=== PATIENT | female | born 1965 | race Asian ===

== ENCOUNTER 2018-12-06 13:05 | Emergency (ER) | payer OTHER ==
[~2018-12-06] VITALS: Ht 157.5 cm; Wt 49.9 kg
--- NOTE | 2018-12-06 13:10 | NUR ---
PATIENT CAME IN BY BLS. PATIENT ALTERED AND NOT ABLE TO COMMUNICATE. EMT'S NEVER GAVE REPORT ON PATIENT.
--- NOTE | 2018-12-06 13:10 | NUR ---
PT BROUGHT IN BY BLS TRANSPORT AND PLACED IN BED #5, TRIAGED. REPORT GIVEN TO DALE
--- NOTE | 2018-12-06 13:44 | NUR ---
ER Dr. JACKSON at bedside examining patient.
[2018-12-06] MEDS ORDERED: NACL 0.9% 1,000 ML IV ONE (13:45)
--- NOTE | 2018-12-06 13:50 | NUR ---
PATIENT CAME IN FOR ALTERED MENTAL STATUS. 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 PATIENT IS ALERT TO NAME AND . PATIENT AWAKE AND ABLE TO COMUNICATE BUT HARD TO UNDERSTAND. PATIENT COMPLAINING OF PAIN IN ABD 3/10 NON RADITATING.
[2018-12-06 14:12] LABS: BASOPHILS % (AUTO) 0.5 % (0.0-2.0); EOSINOPHILS # (AUTO) 0.3 K/uL (0.0-0.4); EOSINOPHILS % (AUTO) 4.1 % (0.0-4.0); HEMOGLOBIN 13.8 g/dL (12.0-16.0); LYMPHOCYTES # (AUTO) 2.5 K/uL (1.0-5.5); LYMPHOCYTES % (AUTO) 31.6 % (20.5-51.5); MEAN CORPUSCULAR HEMOGLOBIN 31 pg (27-31); MEAN CORPUSCULAR HGB CONC 33 % (32-36); MEAN CORPUSCULAR VOLUME 94 fL (79.0-98.0); MONOCYTES # (AUTO) 0.8 K/uL (0.0-1.0); MONOCYTES % (AUTO) 10.3 % (1.7-9.3); NEUTROPHILS # (AUTO) 4.2 K/uL (1.8-7.7); NEUTROPHILS % (AUTO) 53.5 % (40.0-70.0); PLATELET COUNT (AUTO) 318 K/uL (130-430); RED BLOOD CELL COUNT(AUTO) 4.46 MIL/uL (4.2-6.2); RED CELL DISTRIBUTION WIDTH 12.9 % (9.0-15.0); WHITE BLOOD COUNT (AUTO) 7.9 K/uL (4.8-10.8)
[2018-12-06 14:21] LABS: ANION GAP 7 (5-15); CALCIUM 9.5 mg/dL (8.4-11.0); CHLORIDE 104 mmol/L (98-107); CREATININE 0.57 mg/dL (0.55-1.30); GLUCOSE 92 mg/dL (70-99); SODIUM SERUM 138 mmol/L (136-145); UREA NITROGEN, BLOOD 14 mg/dL (8-21)
--- NOTE | 2018-12-06 14:21 | NUR ---
PATIENT LEFT TO CT VIA GURNEY IN STABLE CONDITION.
[2018-12-06 14:25] LABS: ALANINE AMINOTRANSFERASE 38 U/L (12-78); ALBUMIN 3.6 g/dL (3.4-4.8); ASPARTATE AMINOTRANSFERASE 20 U/L (10-37); GFR AFRICAN AMERICAN 143 mL/min (>90); TOTAL BILIRUBIN 0.2 mg/dL (0.0-1.0)
[2018-12-06 14:26] LABS: ALCOHOL, BLOOD < 3 mg/dL (<10)
--- NOTE | 2018-12-06 14:30 | NUR ---
PATIENT BACK FROM CT IN STABLE CONDITION.
[2018-12-06 14:47] LABS: INR 0.9 (0.8-1.2); PROTHROMBIN TIME 9.7 SECS (9.5-12.5)
--- NOTE | 2018-12-06 15:45 | NUR ---
Blood for labwork drawn from [facility]. Patient tolerated WELL.
--- NOTE | 2018-12-06 16:40 | NUR ---
# 16 FR In and Out catheter with use of sterile technique. Immediate return of 400 ml YELLOW urine noted. Urine sample collected and sent to lab. Pt tolerated procedure WELL. Patient unable to toilet self.
[2018-12-06] MEDS ORDERED: ACET-73 PO (17:00)
[2018-12-06] MEDS ORDERED: SYN50 PO (17:00)
[2018-12-06] MEDS ORDERED: DOCU-144 PO (17:00)
[2018-12-06] MEDS ORDERED: MULT-976 PO (17:00)
[2018-12-06] MEDS ORDERED: TRAM50TA2 PO (17:00)
[2018-12-06] MEDS ORDERED: KLO.5 PO (17:00)
[2018-12-06] MEDS ORDERED: PHEN30TA41 PO (17:00)
--- NOTE | 2018-12-06 17:01 | NUR ---
Medication reconciliation completed with information provided by facility. Any prior medication reconciliation on file was reviewed and corrected.
[2018-12-06 17:13] LABS: BILIRUBIN,URINE NEGATIVE (NEGATIVE); BLOOD, URINE NEGATIVE (NEGATIVE); CLARITY/URINE CLEAR (CLEAR); COLOR,URINE YELLOW (YELLOW); GLUCOSE,URINE NEGATIVE (NEGATIVE); KETONES,URINE NEGATIVE (NEGATIVE); LEUKOCYTE ESTERASE ,URINE 1+ (NEGATIVE); NITRITE, URINE NEGATIVE (NEGATIVE); PROTEIN URINE NEGATIVE (NEGATIVE); UROBILINOGEN,URINE 0.2 (0.2-1.0)
--- NOTE | 2018-12-06 17:13 | NUR ---
CALLED [facility] AND GAVE REPORT TO MK.
[2018-12-06 17:14] LABS: BARBITURATE, URINE POSITIVE (NEG <=200)
[2018-12-06 17:15] LABS: BENZODIAZEPINE, URINE NEGATIVE (NEG <=150); CANNABINOID, URINE NEGATIVE (NEG <=50); COCAINE, URINE NEGATIVE (NEG <=150); METHAMPHETAMINES SCREEN,URINE NEGATIVE (NEG <=500); OPIATE, URINE NEGATIVE (NEG <=100); PHENCYCLIDINE SCREEN,URINE NEGATIVE (NEG <=25); UR TRICYCLIC ANTIDEPRESSANTS NEGATIVE (NEG <=300); URINE AMPHETAMINE NEGATIVE (NEG <=500); URINE METHADONE NEGATIVE (NEG <=200); URINE OXYCODONE SCREEN NEGATIVE (NEG <=100); URINE PROPOXYPHENE SCREEN NEGATIVE (NEG <=300)
[2018-12-06 17:31] LABS: BACTERIA,URINE FEW /HPF (None Seen); RBC,URINE 0-3 /HPF (0-3)
[2018-12-06 18:01] VITALS: BP_SYST 102
== END 2018-12-06 17:13 | disposition home or self-care (01) ==
LOC: SED 13:05
DX: G80.8 Other cerebral palsy (principal); Z79.899 Other long term (current) drug therapy
CPT/HCPCS: 36415; 70450; 71045; 80053; 80307; 81000; 83605; 84484; 85025; 85610; 85730; 87086; 93005; 99284; G0482; J7030